=== PATIENT | female | born 1995 | race Caucasian/White ===

== ENCOUNTER 2017-02-13 10:55 | Emergency (ER) | payer MEDICAID ==
[2017-02-13] MEDS ORDERED: FAMOTIDINE 20 MG/2 ML SDV IVP ONE (11:55)
[2017-02-13] MEDS ORDERED: DEXAMETHASONE 10 MG/ML VIAL IVP ONE (11:55)
--- NOTE | 2017-02-13 12:01 | EDPHY ---
H & P Time Seen by Provider: 02/13/17 11:56 HPI/ROS: HPI: 22-year-old female presents to emergency department with chief concern allergic reaction. A a granola bar at 7:20 a.m. at [facility] and developed sudden onset tongue and lip swelling, difficulty swallowing, stomach cramps, nausea and vomiting. Her lips turned blue according to her mother. She used an EpiPen. 911 was called and a 2nd EpiPen and 50 mg p.o. Benadryl. At time of exam reports decrease in tongue and lip swelling. Has mild abdominal cramping but denies nausea, vomiting, diarrhea. Denies fever, chills, shortness of breath, chest pain, wheezing. 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 Past medical history also notable for knee surgery and asthma. Lives in [facility]. Accompanied by her mother. ROS:10 point review of systems is negative other than as stated in HPI Smoking Status: Never smoked Physical Exam: Vital signs stable, reviewed by me General: Awake, alert, calm, cooperative. No acute distress. Head: Normalocephalic. Atraumatic. EENT: PERRLA. EOMI. No pallor or injection. Anicteric. No nystagmus. No injection. TMs intact bilaterally with normal landmarks. No rhinnorhea, nasal passages clear. Oropharynx without redness, exudates, or lesions. Tonsils 2+ bilaterally, no exudates. Neck: Supple, nontender. No lymphadenopathy. Full range of motion. Respiratory: Breathing unlabored. Breath sounds equal bilaterally and clear to auscultation. No adventitious sounds. CV: Chest nontender, atraumatic. Heart rate regular. No murmur, distal pulses 2+ bilaterally. Brisk cap refill all extremities. GI: Abdomen soft, diffuse mild tenderness to deep palpation. Bowel sounds normoactive and positive x4 quadrants. Neuro: Alert. Oriented x 3. Speech clear. Nonfocal cranial nerves throughout. Sensation intact all extremities. Skin: Skin warm, dry, intact. No rash or hives. Skin turgor normal. Extremities: Full range of motion in all 4 extremities. Strength 5+ all extremities. Constitutional: Initial Vital Signs Heart Rate 16 L 02/13/17 12:00 Respiratory Rate 93 H 02/13/17 12:00 Blood Pressure 97/67 L 02/13/17 12:00 O2 Delivery Mode Room Air Allergies/Adverse Reactions: tree nut [Nuts] Allergy (Verified 02/13/17 11:06) nuts Allergy (Uncoded 02/13/17 11:06) Home Medications: Medication Instructions Recorded EPINEPHrine [Epipen 0.3 MG] 0.3 mg IM ONCE 02/13/17 FLUTICASONE/SALMETEROL [ADVAIR HFA 1 puffs IH 02/13/17 230-21 MCG INHALER] Medical Decision Making ED Course/Re-evaluation: 22-year-old female presents to ED with allergic reaction. Received 2 epi pens prior to arrival. Given total of 50 mg p.o. Benadryl prior to arrival. Time of exam, she is in no respiratory distress. She is given IV 10 mg Decadron, 20 mg Pepcid, 25 mg IV Benadryl. Vitals are stable. After 1 hour of observation patient feels much better. Vitals stable. No respiratory distress. No dysphagia. Counseled regarding need for prompt follow -up. Understands. Differential Diagnosis: Differential diagnosis includes but is not limited to general allergic reaction , anaphylaxis, angioedema - Data Points Medications Given: Discontinued Medications Dexamethasone (Decadron Injection) 10 mg IVP EDNOW ONE Stop: 02/13/17 11:56 Last Admin: 02/13/17 12:10 Dose: 10 mg Diphenhydramine HCl (Benadryl Injection) 25 mg IVP EDNOW ONE Stop: 02/13/17 11:56 Last Admin: 02/13/17 12:10 Dose: 25 mg Famotidine (Pepcid) 20 mg IVP EDNOW ONE Stop: 02/13/17 11:56 Last Admin: 02/13/17 12:28 Dose: 20 mg Ondansetron HCl (Zofran) 4 mg IVP EDNOW ONE Stop: 02/13/17 12:25 Last Admin: 02/13/17 12:25 Dose: 4 mg Departure - Departure Disposition: Home, Routine, Self-Care Clinical Impression: Allergic reaction Condition: Good Instructions: General Allergic Reaction (ED) Additional Instructions: Plan: Benadryl 25-50 mg every 4-6 hours as needed For worsening symptoms including difficulty breathing or swallowing, call 911 Follow up with primary care or manager product marketing in [facility] [place] upon return--When you call to schedule appointment, please let the office know you are an "ER follow up" appointment" Referrals: NONE *PRIMARY CARE P,. [Primary Care Provider] - As per Instructions
[2017-02-13] MEDS ORDERED: ONDANSETRON 4 MG/2 ML VIAL ONE (12:20)
[2017-02-13] MEDS ORDERED: ONDANSETRON 4 MG/2 ML VIAL IVP ONE (12:24)
[2017-02-13 13:06] VITALS: BP 94/53; PULSE 74; RESP 16; TEMP 97.5; O2SAT 93
== END 2017-02-13 13:06 | disposition home or self-care (01) ==
DX: T78.1XXA Other adverse food reactions, not elsewhere classified, initial encounter (principal); J45.909 Unspecified asthma, uncomplicated
CPT/HCPCS: 96374; J1200; J2405